=== PATIENT | female | born 1935 | race Caucasian/White ===

== ENCOUNTER → 2017-02-04 | Outpatient (CLI) | payer OTHER ==
[~2017-02-04] MED LIST: CIPRO750 MG PO; GERITOL COMP1 TABLET PO; GLUCOPHAGE500 MG PO; LOPRESSOR50 MG PO; MYSOLINE50 MG PO; NEXIUM40 MG PO; VESICARE5 MG PO; ZOCOR40 MG PO; ZOLOFT50 MG PO
== END | disposition home or self-care (01) ==
LOC: NUC 08:51
DX: M47.896 Other spondylosis, lumbar region (principal); M19.072 Primary osteoarthritis, left ankle and foot; M19.071 Primary osteoarthritis, right ankle and foot; R93.7 Abnormal findings on diagnostic imaging of other parts of musculoskeletal system
CPT/HCPCS: 78315; A9503